=== PATIENT | male | born 1950 | race Caucasian/White ===

== ENCOUNTER 2023-07-23 22:12 | Inpatient (IN) | payer OTHER ==
[~2023-07-23] VITALS: Ht 167.6 cm; Wt 80.0 kg
[~2023-07-23 22:12] MED LIST: BACTRIM DS 8001 TAB PO; CIPRO 250MG TA250 MG PO; PERCOCET 325 MG1 TA2 PO
[2023-07-23 23:20] LABS: ALBUMIN 3.5 gm/dL (3.4-4.8); BILIRUBIN,TOTAL 0.5 mg/dL (0.2-1.2); CALCIUM 9.5 mg/dL (8.4-10.2); CREATININE, serum 1.17 mg/dL (0.72-1.25); POTASSIUM 4.6 mmol/L (3.5-4.5); TOTAL PROTEIN 7.5 gm/dL (6.2-8.1)
[2023-07-23 23:25] LABS: BASO # 0.1 K/mm3 (0.0-0.2); BASO % 0.8 % (0.0-2.0); EOS # 0.1 K/mm3 (0.0-0.7); EOS % 1.2 % (0.0-4.0); GRAN # 3.9 K/mm3 (1.4-6.5); GRAN % 60.6 % (42.2-75.2); HEMATOCRIT 44.3 % (42.0-52.0); HEMOGLOBIN 14.9 g/dl (13.5-18.0); LYMPH # 1.8 K/mm3 (1.2-3.4); LYMPH % 27.4 % (20.0-51.0); MEAN CELL VOLUME 87 fl (80.0-100.0); MEAN CORPUSCULAR HEMOGLOBIN 29 pg (27-31); MEAN CORPUSCULAR HGB CONC 34 g/dl (33.0-37.0); MEAN PLATELET VOLUME 13.3 fl (7.4-10.4); MONO # 0.6 K/mm3 (0.1-0.6); MONO % 8.8 % (1.7-9.3); PLATELET COUNT 94 K/mm3 (130-400); RED BLOOD COUNT 5.08 M/mm3 (4.20-5.60); REDCELL DISTRIBUTION WIDTH-CV 14.6 % (11.5-14.5)
[2023-07-23 23:26] LABS: TROPONIN-I 0.012 ng/mL (0.00-0.033)
[2023-07-24] VITALS (863 sets, daily range): BP systolic 113–1123; BP diastolic 66–90; PULSE 67–98; TEMP 97.8–98.2; O2SAT 88–100
[2023-07-24] MEDS ORDERED: TOPROL XL 25MG25 MG PO (02:24)
[2023-07-24] MEDS ORDERED: GLUCOPHAGE1000 MG PO (02:24)
[2023-07-24] MEDS ORDERED: JARDIANCE25 PO (02:24)
[2023-07-24] MEDS ORDERED: HCTZ 25MG TAB25 MG PO (02:24)
[2023-07-24] MEDS ORDERED: HYTRIN 5MG C5 MG/CAP PO (02:25)
[2023-07-24] MEDS ORDERED: NEURONTIN300 MG/CAP PO (02:25)
[2023-07-24] MEDS ORDERED: LANTUS SOLOS100 U/ML SQ (02:25)
[2023-07-24] MEDS ORDERED: OZEMPIC1 MG/0.71 SQ (02:26)
[2023-07-24] MEDS ORDERED: ASPIRIN E.C. 8181 MG PO (02:26)
[2023-07-24] MEDS ORDERED: SINGULAIR 110 MG/TAB PO (02:26)
[2023-07-24] MEDS ORDERED: ZOCOR 80MG80 MG PO (02:26)
[2023-07-24 03:17] LABS: INR 1.1 (0.8-3.0); PROTHROMBIN TIME 11.6 SECONDS (9.7-12.8)
--- NOTE | 2023-07-24 03:35 | NUR ---
REPORT RECEIVED FROM KHAI DIGGS RN. PT WHEELED TO ICU ROOM 2 VIA CART AND 1 STAFF. PT ABLE TO STAND AND TRANSFER WITH SBA AND RATES PAIN TO L SIE OF CHEST AT 4/10 AT THIS TIME. CARE PLAN REVIEWED, PATIENT ORIENTED TO ROOM, CALL LIGHT, PHONE, ADMISSION PROCESS AND ALL QUESTIONS ANSWERED. VSS AT THIS TIME. BED IN LOW POSITION AND CALL LIGHT WITHIN REACH.
--- NOTE | 2023-07-24 04:56 | NUR ---
PT REPORTS HE NEEDS AN EYE DROP FOR HIS LEFT EYE DUE TO CORNEAL TRANSPLANT X 4. UNSURE OF TYPE. CALLED BRITTNEE CARPIO AND NOTIFIED HER OF CONCERN. DUE TO UNCERTAINTY OF MEDICATION, WILL BRING IN MEDICATION TODAY AND IT CAN BE ADMINISTERED WHEN MEDICATION IS KNOWN.
[2023-07-24 05:15] LABS: BASO % 0.3 % (0.0-2.0); EOS # 0.1 K/mm3 (0.0-0.7); EOS % 1.8 % (0.0-4.0); GRAN # 3.3 K/mm3 (1.4-6.5); GRAN % 54.8 % (42.2-75.2); HEMATOCRIT 39.3 % (42.0-52.0); HEMOGLOBIN 13.2 g/dl (13.5-18.0); LYMPH % 33.8 % (20.0-51.0); MEAN CELL VOLUME 88 fl (80.0-100.0); MEAN CORPUSCULAR HEMOGLOBIN 30 pg (27-31); MEAN CORPUSCULAR HGB CONC 34 g/dl (33.0-37.0); MEAN PLATELET VOLUME 10.9 fl (7.4-10.4); MONO # 0.5 K/mm3 (0.1-0.6); MONO % 8.5 % (1.7-9.3); PLATELET COUNT 119 K/mm3 (130-400); RED BLOOD COUNT 4.48 M/mm3 (4.20-5.60); REDCELL DISTRIBUTION WIDTH-CV 14.6 % (11.5-14.5)
[2023-07-24 05:30] LABS: ALBUMIN 3.2 gm/dL (3.4-4.8); BILIRUBIN,TOTAL 0.5 mg/dL (0.2-1.2); CALCIUM 8.8 mg/dL (8.4-10.2); CHOLESTEROL RISK RATIO 2.3; CREATININE, serum 0.81 mg/dL (0.72-1.25); POTASSIUM 3.7 mmol/L (3.5-4.5); TOTAL PROTEIN 6.5 gm/dL (6.2-8.1)
[2023-07-24 05:40] LABS: TROPONIN-I 0.464 ng/mL (0.00-0.033)
--- NOTE | 2023-07-24 05:45 | NUR ---
POTASSIUM LEVEL OF 3.7 REPORTED TO BRITTNEE CARPIO. ORDERS TO INITIATE K REPLACEMENT PROTOCOL RECEIVED. VORB
--- NOTE | 2023-07-24 07:00 | NUR ---
Report received from ANA Coy. Reviewed labs. Reviewed gtts infusing including Nitro gtt. Reviewed POC. Pt is resting in bed watching TV. NPO for possible procedure today. Call light within reach.
[2023-07-24] MEDS ORDERED: BENADRYL50 MG PO (08:49)
[2023-07-24] MEDS ORDERED: FLONASEALLERGY NS (08:49)
[2023-07-24] MEDS ORDERED: RT ADVAIR 528 DISKUS IH (08:49)
[2023-07-24] MEDS ORDERED: PREDFORTE5ML OS (08:50)
[2023-07-24] MEDS ORDERED: PREDFORTE5ML OD (08:50)
--- NOTE | 2023-07-24 10:13 | NUR ---
Pt left floor for heart cath.
--- NOTE | 2023-07-24 10:41 | NUR ---
Refer to merge hemodynamic report for procedural sedation/notes
--- NOTE | 2023-07-24 11:15 | NUR ---
Pt returned to room 2. Pt needs to transfer to [facility], federico superviosr aware and Dr. Esquivel aware. Report received from ANA Botello. Site to right groin is soft and non-tender. Distal pulses palpable. Vital signs are stable. Pt is drowsy but easily arousable. C/o slight headache. Nitro continues to infuse. Call light wihtin reach. Educated about flat time and need to keep leg straight. Verbalized understanding.
--- NOTE | 2023-07-24 11:35 | NUR ---
RE: NSTEMI/ Cardiac Rehab referral. Patient being transported to , will follow up with Cardiac rehab staff for referral.
--- NOTE | 2023-07-24 12:38 | NUR ---
Paperwork faxed to Audrey at [facility].
--- NOTE | 2023-07-24 15:08 | NUR ---
cannery worker was notified patient will be transferred to [facility].
--- NOTE | 2023-07-24 15:34 | NUR ---
Audrey from the [facility] Transfer center called and said the patient's Primary Insurance [employer] is not in network for them. We would need to get prior authorization from the VA before would accept the transfer of the patient.
--- NOTE | 2023-07-24 15:40 | NUR ---
This RN spoke with Kitty, case mgmt and then to Esther, case mgmt regarding this, they both said that we do not get prior auth, that [facility] needs to get auth once the patient gets there.
--- NOTE | 2023-07-24 15:45 | NUR ---
This RN called Audrey again from the transfer center, just to clarify, who needed to get the transfer auth, and she stated we do, that she even moved it up the chain to her big bosses and they said no to the transfer without a prior auth from the VA.
--- NOTE | 2023-07-24 16:15 | NUR ---
This RN updated Dr. Toan Esquivel that was not able to accept the patient in transfer, due to insurance issues.
--- NOTE | 2023-07-24 18:28 | NUR ---
Pt resting in bed. Site to right groin remains soft and non-tender. Pt off bedrest, stands up at side of bed to void. Pt calls prior to getting up. Pt denies any chest pain. C/o headache, titrating nitro as tolerated. Call light within reach.
--- NOTE | 2023-07-24 19:15 | NUR ---
Received report from ANA Bo. Patient resting quietly in bed. Right groin cath access site is covered with gauze and tegaderm dressing. Site is clean, dry, intact, soft to palpation, and without hematoma formation. All pulses palpable.
--- NOTE | 2023-07-24 20:00 | NUR ---
Patient resting quietly in bed. Vitals within normal limits. Patient continues to receive nitro drip, see IV drip titrations. Patient denies presence of chest pain at this time but reports a mild headache. Nitro titrated down according to orders. Patient assisted with use of urinal. Snack provided with HS levemir. No further needs noted.
[2023-07-25] VITALS (1005 sets, daily range): BP systolic 104–166; BP diastolic 68–93; PULSE 84–113; TEMP 97.9–98.5; O2SAT 87–100
[2023-07-25 05:48] LABS: BASO % 0.3 % (0.0-2.0); EOS % 0.4 % (0.0-4.0); GRAN # 5.3 K/mm3 (1.4-6.5); GRAN % 74.1 % (42.2-75.2); HEMATOCRIT 39.1 % (42.0-52.0); HEMOGLOBIN 12.9 g/dl (13.5-18.0); LYMPH # 1.1 K/mm3 (1.2-3.4); LYMPH % 14.9 % (20.0-51.0); MEAN CELL VOLUME 87 fl (80.0-100.0); MEAN CORPUSCULAR HEMOGLOBIN 29 pg (27-31); MEAN CORPUSCULAR HGB CONC 33 g/dl (33.0-37.0); MEAN PLATELET VOLUME 10.9 fl (7.4-10.4); MONO # 0.7 K/mm3 (0.1-0.6); MONO % 9.7 % (1.7-9.3); PLATELET COUNT 112 K/mm3 (130-400); RED BLOOD COUNT 4.48 M/mm3 (4.20-5.60); REDCELL DISTRIBUTION WIDTH-CV 14.6 % (11.5-14.5)
[2023-07-25 06:02] LABS: CALCIUM 8.4 mg/dL (8.4-10.2); CREATININE, serum 0.72 mg/dL (0.72-1.25); POTASSIUM 3.6 mmol/L (3.5-4.5)
--- NOTE | 2023-07-25 07:00 | NUR ---
REPORT RECEIVED FROM ANA YANG. PT SITTING IN BEDSIDE CHAIR, VSS. NITRO INFUSING AT 15 MCG/MIN TO R HAND IV. PT DENIES ANY CHEST PAIN. CALL LIGHT IN REACH.
--- NOTE | 2023-07-25 10:38 | NUR ---
Initial visit; Patient preparing to go to [facility] for a triple bi-passe and is more concerned about his than he is himself. His is unable to get from one place to another and cannot drive. His daughter is setting up a group of friends who will help her so patient can thrive following his surgery. Patient thanked Toucher Up for prayer and god's blessings.
--- NOTE | 2023-07-25 13:59 | NUR ---
DOROTHY assisted with completing an RFS form for patient to go to [facility] for CABG surgery. DOROTHY faxed and emailed the RFS form to the [facility]. DOROTHY was notified they received the form. DOROTHY attempted to contact the midline supervisors to draw attention to the request but all calls went to voicemail. DOROTHY updated power house control room operator.
--- NOTE | 2023-07-25 17:55 | NUR ---
Call placed to [facility] after Dr. Olivares called the Emergent Authorizatoin Line for VA @ . The number they provided was [phone]. Call placed to transfer line. This steffen house supervisor did nto get to talk with Triage Nurse. Per the Transfer Line it is in the notes from yesterday that they explained they could not accept patient due to that he was out of network. He would need to go to a "[facility]" Call placed to [facility] transfer line to see if they would accept insurance.
--- NOTE | 2023-07-25 20:00 | NUR ---
PM ASSESSMENT COMPLETE. PT DENIES CHEST PAIN AT THIS TIME. DOES REPORT TENDERNESS TO R WRIST PIV. AREA WITH REDNESS. NEW 20 G PIV STARTED TO L WRIST X 1 STICK, NITRO AND NS MOVED TO NEW SITE. R WRIST PIV REMOVED, GAUZE DRESSING AND PAPER TAPE APPLIED. VSS, PT HAS BEEN COMMUNICATING WITH FAMILY VIA PERSONAL CELL PHONE. AWARE OF POTENTIAL OF HOSPITAL TRANSFER IN AM. PT STATES NO QUESTIONS OR CONCERNS AT THIS TIME.
[2023-07-26] VITALS (873 sets, daily range): BP systolic 106–129; BP diastolic 65–94; PULSE 78–101; TEMP 97.9–98.5; O2SAT 85–100
[2023-07-26 05:46] LABS: HEMATOCRIT 38.6 % (42.0-52.0); HEMOGLOBIN 13.2 g/dl (13.5-18.0); MEAN CELL VOLUME 86 fl (80.0-100.0); MEAN CORPUSCULAR HEMOGLOBIN 29 pg (27-31); MEAN CORPUSCULAR HGB CONC 34 g/dl (33.0-37.0); MEAN PLATELET VOLUME 11.3 fl (7.4-10.4); PLATELET COUNT 110 K/mm3 (130-400); REDCELL DISTRIBUTION WIDTH-CV 14.8 % (11.5-14.5)
--- NOTE | 2023-07-26 05:50 | NUR ---
PT AWOKEN FOR MORNING EKG. REPORTS HEADACHE, DENIES CHEST PAIN. TYLENOL GIVEN AND NITRO GTT DECREASED ONE TITRATION TO 10 MCG/MIN.
[2023-07-26 05:59] LABS: CALCIUM 8.9 mg/dL (8.4-10.2); CREATININE, serum 0.77 mg/dL (0.72-1.25); MAGNESIUM 1.8 mg/dL (1.6-2.6); POTASSIUM 3.6 mmol/L (3.5-4.5)
--- NOTE | 2023-07-26 07:00 | NUR ---
Report received from ANA Gurrola. Pt has uneventful night but was unable to get much sleep. Reports did not have any chest pain overnight. Nitro gtt continues to run at 10 mcg/min. Pt lies supine in bed and appears to be sleeping. No s/s discomfort. Call light in reach.
--- NOTE | 2023-07-26 11:24 | NUR ---
Spoke with Dave, Triage Coordinator at [facility]. Explained to Coordinator that the patients primary insurance is with the VA and we recievied an Emergent Referance Number last evening. Provided reference number; Updated Face Sheet and coordinator spoke with the nurse. Will take this back to his financial deparatment and get back to us soon.
--- NOTE | 2023-07-26 12:09 | NUR ---
Call recieved from blanca Acosta that the billing department at [facility] wanted a written verification number. Call to Emergent Authorization; they stated that when the VA arrives at [facility] they would just need to call within the first 72 hours for authorization and they would be provided with that number. After a 15 minute hold and providing the patient demographics and the hospital information; it was communicated to this bunk house worker that is out of network
--- NOTE | 2023-07-26 12:58 | NUR ---
D: Initial visit: Stone Dresser stopped by room on rounds. Pt was resting and content sitting in his chair A: Pt was concerned about finding a place for him to go. His is in [place] and unable to drive. He wants to go to a place that has family close. P: Stone Dresser discussed his concernes and offered comfort. Stone Dresser informed pt that if he needed anything to let his nurse know. Stone Dresser will follow up as needed.
--- NOTE | 2023-07-26 12:58 | NUR ---
Call placed to [facility] in [place]. Provided patient's demographics. Faxed Face Sheet; Cath Report; ID Card; VA Verificaton Form. Provided Dr. Olivares # as well as this rogers supervisors number. Had Grassland Conservationist cloud cath images and ECHO
--- NOTE | 2023-07-26 14:00 | NUR ---
Recieved a call from Dave, Triage Coordinator at [facility]. Stated that he recieved a call from his billing department and they have accepted patient financial under Medicare. Questioned Dave that this was correct as this facility had been told yesterday that Medicare/Humana was not in network. Dave assured this Bowling Pin Setters Installer that he also was aware of that and his billing dept assured that he had been accepted. Call placed to ANA Stilesbunch breaker machine operator as there is some concern regarding the info given to this Bowling Pin Setters Installer regarding patient's payment source.
--- NOTE | 2023-07-26 15:00 | NUR ---
I called Transfer Team with with Guillermo Safety Representative and spoke with Dave concerning case. It is now being said that they will accept under [employer] for this pt. I reminded Dave that on 07/24 they had stated that the pt was out of network for his [employer] and stated he could only come under his VA Choice. A VA Choice auth was obtained and on 07/25 it was attempted by Guillermo to secure a transfer. In this process we were told that now their Billing dept was declining VA for the transfer. [place] obtained by [place] was [place] [id number]. Today the Billing Dept stated that they would accept pt under [employer]. I inquired of Dave why now the pt would be covered by [employer] when on 07/24 it was declined. He did not know but he did state that in fact they had a bed and would accept the pt under [employer]. Pt to be transferred later today to .
--- NOTE | 2023-07-26 15:22 | NUR ---
tar pot worker was notified [facility] expressed they were out of network and would not be able to accept this patient. DOROTHY contacted the [place] midlevel insurance claims supervisor, Vianey Wen, whom expressed this was not the case and they should be able to accept the patient with the ID number that Dr. Olivares received yesterday, ID [id number]. Vianey expressed she would be willing to speak with the [facility] if needed. DOROTHY notified house painter helper, Guillermo about the conversation with Vianey. Guillermo expressed she was in contact with Dave at [facility] and she was sending the information he requested. DOROTHY was notified by ANA [facility] health physician, whom expressed patient was worried about when he transferred to another hospital that his whom has dementia would be home alone. DOROTHY was notified patient has been accepted by [facility] and the house painter helper was working on transferring him via ambulance. SW met with patient and provided this update. SW discussed patient's concerns about his being home alone and asked if they would like home health services. Patient expressed he would like his to have home health services once he returns from the hospital and he would also like to have home health services. DOROTHY provided the Medicare.gov list of home health agencies in the patient's area for when he discharges from [facility]. Patient reports his PCP and his 's PCP is Dr. Kia Rudolph. Patient lives in [place] and has not had concerns with affording his medications. Patient reports he is not concerned at this time about his because he has family members that are going to transfer her to [facility] when he transfers there. DORTOHY contacted Mei from [facility] for Dr. Rudolph's office. DOROTHY explained patient would like himself and his to have home health services when he returns from the hospital. Deidre expressed [facility] should establish the patient with home health services but the SW could provide the patient with their contact information to get it established if they do not prior to discharge from . DOROTHY provided the [facility] number to the patient and his and notified them to contact them if home health was not established upon patient's discharge from [facility]. DOROTHY left a voicemail with [place], Vianey Wen, to give an update. Discharge Plan: [facility]
--- NOTE | 2023-07-26 16:00 | NUR ---
Pt taken via EMS to [facility] for anticipated CABG procedure at this time. Pt has clothes, cellphone, kiln charger, shoes, and wallet in his possession upon transfer. VS within normal limits. Nitro gtt continued upon transfer at 15 mcg/min. EMS given report on patient. Patient and family aware of plan of care. All questions answered appropriately.
--- NOTE | 2023-07-26 16:25 | NUR ---
PHONE REPORT GIVEN TO ANA PIMENTEL AT [facility]. PT WILL BE GOING TO ROOM HC 421.
== END 2023-07-26 16:00 | DRG 282 ==
LOC: COL.ER 22:12 → EDBD 22:13 → ICU 07-24 02:43
PROVIDERS: Internal Medicine; Nurse Practitioner Family; Nurse Practitioner Primary Care; ADMIT Internal Medicine
PROC: 4A023N7 Measurement of Cardiac Sampling and Pressure, Left Heart, Percutaneous Approach (ICD-10-PCS; principal; 2023-07-24)
DX: I21.4 Non-ST elevation (NSTEMI) myocardial infarction (principal); D69.6 Thrombocytopenia, unspecified; I10 Essential (primary) hypertension; E78.5 Hyperlipidemia, unspecified; J44.9 Chronic obstructive pulmonary disease, unspecified; E11.65 Type 2 diabetes mellitus with hyperglycemia; Z79.4 Long term (current) use of insulin; K40.90 Unilateral inguinal hernia, without obstruction or gangrene, not specified as recurrent
CPT/HCPCS: G0378; J1644; J1815; J2250; J2305; J3010; J3480; J7030; Q9967

== ENCOUNTER 2023-08-24 18:09 | Observation (INO) | payer OTHER ==
[~2023-08-24] VITALS: Ht 167.6 cm; Wt 77.6 kg
[~2023-08-24 18:09] MED LIST changes: +ASPIRIN E.C. 8181 MG PO; +BENADRYL50 MG PO; +FLONASEALLERGY NS; +GLUCOPHAGE1000 MG PO; +HCTZ 25MG TAB25 MG PO; +HYTRIN 5MG C5 MG/CAP PO; +JARDIANCE25 PO; +LANTUS SOLOS100 U/ML SQ; +NEURONTIN300 MG/CAP PO; +OZEMPIC1 MG/0.71 SQ; +PREDFORTE5ML OD; +PREDFORTE5ML OS; +RT ADVAIR 528 DISKUS IH; +SINGULAIR 110 MG/TAB PO; +TOPROL XL 25MG25 MG PO; +ZOCOR 80MG80 MG PO
[2023-08-24] MEDS ORDERED: NS 500 ML IV ONE (18:30)
[2023-08-24] MEDS ORDERED: Acetaminophen 500 MG TAB PO ONE (18:30)
[2023-08-24 18:46] LABS: BASO % 0.5 % (0.0-2.0); EOS # 0.2 K/mm3 (0.0-0.7); EOS % 2.8 % (0.0-4.0); GRAN % 65.1 % (42.2-75.2); HEMOGLOBIN 11.5 g/dl (13.5-18.0); LYMPH # 1.3 K/mm3 (1.2-3.4); LYMPH % 20.9 % (20.0-51.0); MEAN CELL VOLUME 85 fl (80.0-100.0); MEAN CORPUSCULAR HEMOGLOBIN 27 pg (27-31); MEAN CORPUSCULAR HGB CONC 32 g/dl (33.0-37.0); MEAN PLATELET VOLUME 9.9 fl (7.4-10.4); MONO # 0.6 K/mm3 (0.1-0.6); MONO % 10.1 % (1.7-9.3); PLATELET COUNT 215 K/mm3 (130-400); RED BLOOD COUNT 4.25 M/mm3 (4.20-5.60); REDCELL DISTRIBUTION WIDTH-CV 15.1 % (11.5-14.5)
[2023-08-24 18:55] LABS: HEMATOCRIT 35.9 % (42.0-52.0)
[2023-08-24 19:02] LABS: ALBUMIN 3.2 gm/dL (3.4-4.8); BILIRUBIN,TOTAL 0.6 mg/dL (0.2-1.2); CALCIUM 9.1 mg/dL (8.4-10.2); CREATININE, serum 1.1 mg/dL (0.72-1.25); POTASSIUM 3.6 mmol/L (3.5-4.5)
[2023-08-24 19:09] LABS: TROPONIN-I 0.085 ng/mL (0.00-0.033)
[2023-08-24] MEDS ORDERED: Ibuprofen 400 MG TAB PO ONE (20:30)
[2023-08-24] MEDS ORDERED: K-DUR20 MEQ PO (20:43)
[2023-08-24] MEDS ORDERED: LIPITOR 80MG80 MG PO (20:44)
[2023-08-24] MEDS ORDERED: LOPRESSOR 225 MG/TAB PO (20:44)
[2023-08-24] MEDS ORDERED: PLAVIX 75MG TAB75 MG PO (20:45)
[2023-08-24 21:00] VITALS: BP_SYST 120
[2023-08-24] MEDS ORDERED: Ondansetron 4 MG/2 ML VIAL IV PRN (22:15)
[2023-08-24] MEDS ORDERED: Albuterol/Ipratropium 3 MG-0.5 MG/3 ML Neb Soln IH PRN (22:15)
[2023-08-24] MEDS ORDERED: NS 1,000 ML IV SCH (22:15)
[2023-08-24] MEDS ORDERED: oxyCODONE 5 MG TAB PO PRN (22:15)
[2023-08-24] MEDS ORDERED: Acetaminophen 325 MG TAB PO PRN (22:15)
[2023-08-24 22:21] VITALS: BP 127/83; PULSE 78; TEMP 98.3
--- NOTE | 2023-08-24 22:24 | NUR ---
PATIENT ADMITTED TO ROOM 353. VS-BP 109/75, 96O2 RA, 86 PULSE, 98.3 TEMP. AXO X4. C/O OF MILD CHEST PAIN 2/10 AND REQUIRED NO PAIN MED. HE DENIES SOA AND LUNG SOUNDS ARE CLEAR. TELE IS NS.ORIENTED TO ROOM, CALL LIGHT WITHIN REACH
[2023-08-24] MEDS ORDERED: Dextrose (Glucose) 15 GM (4 x 3.75 GM) Chewable TABLET PACK PO PRN (22:30)
[2023-08-24] MEDS ORDERED: Glucagon 1 MG VIAL IM PRN (22:30)
[2023-08-24] MEDS ORDERED: Dextrose 50% Water 25 GM/50 ML SYRINGE IV PRN (22:30)
[2023-08-24 23:34] VITALS: BP 90/64; PULSE 88; TEMP 97.9
[2023-08-25] VITALS (12 sets, daily range): BP systolic 105–137; BP diastolic 68–82; PULSE 77–87; TEMP 97.5–98.5
[2023-08-25 05:58] LABS: BASO % 0.6 % (0.0-2.0); EOS # 0.2 K/mm3 (0.0-0.7); EOS % 4.1 % (0.0-4.0); GRAN # 2.6 K/mm3 (1.4-6.5); GRAN % 51.4 % (42.2-75.2); HEMOGLOBIN 11.2 g/dl (13.5-18.0); LYMPH # 1.7 K/mm3 (1.2-3.4); LYMPH % 32.5 % (20.0-51.0); MEAN CELL VOLUME 85 fl (80.0-100.0); MEAN CORPUSCULAR HEMOGLOBIN 27 pg (27-31); MEAN CORPUSCULAR HGB CONC 32 g/dl (33.0-37.0); MEAN PLATELET VOLUME 9.8 fl (7.4-10.4); MONO # 0.5 K/mm3 (0.1-0.6); MONO % 10.6 % (1.7-9.3); PLATELET COUNT 192 K/mm3 (130-400); RED BLOOD COUNT 4.09 M/mm3 (4.20-5.60); REDCELL DISTRIBUTION WIDTH-CV 15.1 % (11.5-14.5)
[2023-08-25 06:00] LABS: HEMATOCRIT 34.8 % (42.0-52.0)
[2023-08-25 06:16] LABS: BILIRUBIN,TOTAL 0.6 mg/dL (0.2-1.2); CALCIUM 8.9 mg/dL (8.4-10.2); CREATININE, serum 0.84 mg/dL (0.72-1.25); MAGNESIUM 1.7 mg/dL (1.6-2.6); POTASSIUM 3.5 mmol/L (3.5-4.5); TOTAL PROTEIN 6.8 gm/dL (6.2-8.1)
[2023-08-25 06:37] LABS: THYROID STIMULATING HORMONE 2.139 uIU/mL (0.350-4.940)
[2023-08-25] MEDS ORDERED: Formoterol 20 MCG,Budesonide 0.5 MG IH SCH (07:00)
[2023-08-25] MEDS ORDERED: Insulin Aspart (NovoLOG) SQ SCH (08:00)
--- NOTE | 2023-08-25 08:05 | NUR ---
LOLA WAS PLEASANT AND TALKATIVE THROUGHOUT THE NIGHT. HE CONTINUES TO STATE HE HAS MILD CHEST PAIN-2/10-BUT DOES NOT WANT PAIN MEDS. NO EMERGGENT STATUS CHANGES. LAST TROPONIN 0.029. VS REMAIN STABLE-NO HYPOTENSION OR ARRYTHMIAS. CALL LIGHT WITHIN REACH
--- NOTE | 2023-08-25 08:30 | NUR ---
PT RESTING IN BED UPON ENTERING. ASSESSMETN DONE, MEDS GIVEN AND PT REFUSED PEPCID STATING "I DONT NEED THAT". PT DENIES PAIN OR SHORTNESS OF BREATH AT THIS TIME. PT UPDATED THAT CARDIOLOGY IS GOING TO SEE HIM AND THAT HE IS STILL NPO AT THIS TIME. PT VERBALIZES UNDERSTANDING. NS RUNNING IN RIGHT FOREARM IV AT 100MLS/HR PER ORDER. LUNGS CLEAR AND SCATTERED BRUISING NOTED TO BILATERAL UPPER AND LOWER EXTREMITIES. PT DENIES NEEDS AT THIS TIME. BED IN LOWEST POSITION, CALL LIGHT IN REACH
[2023-08-25] MEDS ORDERED: Clopidogrel 75 MG TAB PO SCH (09:00)
[2023-08-25] MEDS ORDERED: Famotidine 20 MG TAB PO SCH (09:00)
[2023-08-25] MEDS ORDERED: Metoprolol Tartrate 25 MG TAB PO SCH (09:00)
[2023-08-25] MEDS ORDERED: Magnesium Sulfate 4% 50 ML IV ONE (09:15)
[2023-08-25] MEDS ORDERED: Potassium Bicarbonate/Citrate 20 MEQ Effervescent TAB PO SCH (09:15)
[2023-08-25] MEDS ORDERED: Fluticasone Nasal 50 MCG/Spray 16 GM BOTTLE NS PRN (09:15)
[2023-08-25] MEDS ORDERED: *Potassium Replacement Protocol MC SCH (09:15)
--- NOTE | 2023-08-25 10:35 | NUR ---
IV FLUIDS DISCONTINUED PER ORDER
--- NOTE | 2023-08-25 11:13 | NUR ---
PT CURENTLY NPO. THIS NURSE ASKED DR ABERNATHY IF POTASSIUM REPLACEMENT CAN BE CHAGNED TO PILL VERSUS FLUIDS, PT REFUSING IV REPLACEMENT. HOSPITALIST NOTIFIED THIS NURSE THAT IT IS OKAY TO CHANGE
--- NOTE | 2023-08-25 11:16 | NUR ---
PHARMACY CALLED AND POTASSIUM REPLACEMENT CHANGED TO PILL
--- NOTE | 2023-08-25 13:58 | NUR ---
Data: Patient accepted Research Attorney visit when offered during Research Attorney rounds. Patient spoke at length about his illness; the effect it has had on his family, especially his ; the weather; his desire to move to a warmer climate and be closer to 's family; and his time as a Commercial Lines Assistant. Assessment: Patient is lonely and was grateful for someone to talk to about the things he has been thinking of during his hospital stay. Plan of Care: Research Attorney provided supportive listening; a bible; and prayer. Educated Patient on how to request a Research Attorney should he need more support.
--- NOTE | 2023-08-25 16:05 | NUR ---
REPORT GIVEN TO ANA LOW
--- NOTE | 2023-08-25 16:30 | NUR ---
Production Checker met with patient to discuss discharge planning. Patient lives in [place] with his , Esther (ph#[phone]) and goes to the [facility] for primary care and medications. Patient sees Dr. María Witt. Patient uses a cane for ambulation and not other DME. Patient is independent with ADLS and plans to return home at time of discharge. Patient reported his daughter, Ange as DPOA-HC. Discharge Plan: Home
[2023-08-25] MEDS ORDERED: Gabapentin 300 MG CAP PO SCH (21:00)
[2023-08-25] MEDS ORDERED: Montelukast 10 MG TAB PO SCH (21:00)
--- NOTE | 2023-08-25 21:00 | NUR ---
Patient resting in bed. Denies any pain at this time. Requested snack, snack provided. Assessment complete. IV in right forearm flushes easily with no complications. Call light and personal items in reach. Bed in low position.
[2023-08-26] VITALS (7 sets, daily range): BP systolic 114–124; BP diastolic 71–81; PULSE 77–79; TEMP 98–98.3
--- NOTE | 2023-08-26 06:30 | NUR ---
Patient resting in bed with eyes closed. Respirations even and unblabored. No signs of pain. No changes over night. Call light and personal items in reach. Bed in low postion and bed alarm on.
[2023-08-26 07:10] LABS: BASO % 0.7 % (0.0-2.0); EOS # 0.2 K/mm3 (0.0-0.7); EOS % 3.5 % (0.0-4.0); GRAN # 3.6 K/mm3 (1.4-6.5); HEMOGLOBIN 11.7 g/dl (13.5-18.0); LYMPH # 1.4 K/mm3 (1.2-3.4); LYMPH % 23.2 % (20.0-51.0); MEAN CELL VOLUME 84 fl (80.0-100.0); MEAN CORPUSCULAR HEMOGLOBIN 27 pg (27-31); MEAN CORPUSCULAR HGB CONC 32 g/dl (33.0-37.0); MEAN PLATELET VOLUME 10.1 fl (7.4-10.4); MONO # 0.7 K/mm3 (0.1-0.6); MONO % 10.9 % (1.7-9.3); PLATELET COUNT 192 K/mm3 (130-400); RED BLOOD COUNT 4.39 M/mm3 (4.20-5.60)
[2023-08-26 07:31] LABS: CALCIUM 8.9 mg/dL (8.4-10.2); CREATININE, serum 0.78 mg/dL (0.72-1.25); MAGNESIUM 1.7 mg/dL (1.6-2.6); POTASSIUM 3.9 mmol/L (3.5-4.5)
[2023-08-26] MEDS ORDERED: Potassium Bicarbonate/Citrate 20 MEQ Effervescent TAB PO ONE (08:00)
--- NOTE | 2023-08-26 08:20 | NUR ---
PT LAYING IN BED UPON ENTERING. ASSESSMENT DONE, MEDS GIVEN PER ORDER. PT DENIES PAIN AT THIS TIME. PT REFUSED PEPCID AT THIS TIME. POTASSIUM REPLACED X1 DOSE. INT TO RIGHT FOREARM LEAKING DURING FLUSH, INT REPOSITIONED AND DRESSING CHANGED. INT FLUSHES WITHOUT DIFFICULTY. PT DENIES NEEDS AT THIS TIME. BED IN LOWEST POSITION, CALL LIGHT IN REACH
[2023-08-26] MEDS ORDERED: Magnesium Sulfate 4% 50 ML IV ONE (08:45)
--- NOTE | 2023-08-26 15:26 | NUR ---
IV AND TELE DISCONTINUED. PT DRESSED IN PERSONAL CLOTHES AND GIVEN DISCHARGE INSTRUCTIONS. ALL QUESTIONS ANSWERED AND PT VERBALIZED UNDERSTANDING. PT ESCORTED TO PERSONAL VEHICLE VIA WHEELCHAIR BY VASQUEZ EUGENE.
== END 2023-08-26 15:34 | disposition home or self-care (01) ==
LOC: COL.ER 18:09 → MEDICAL 21:24
PROVIDERS: Emergency Medicine; Physician Assistant; ADMIT Hospitalist
DX: G89.18 Other acute postprocedural pain (principal); R07.89 Other chest pain; R79.89 Other specified abnormal findings of blood chemistry; I25.10 Atherosclerotic heart disease of native coronary artery without angina pectoris; E78.5 Hyperlipidemia, unspecified; I95.9 Hypotension, unspecified; I63.9 Cerebral infarction, unspecified; I10 Essential (primary) hypertension; E87.6 Hypokalemia; E83.42 Hypomagnesemia; E11.9 Type 2 diabetes mellitus without complications; J44.9 Chronic obstructive pulmonary disease, unspecified; I97.89 Other postprocedural complications and disorders of the circulatory system, not elsewhere classified; Z79.899 Other long term (current) drug therapy; Z79.84 Long term (current) use of oral hypoglycemic drugs; Z79.82 Long term (current) use of aspirin; Z79.02 Long term (current) use of antithrombotics/antiplatelets; Z87.891 Personal history of nicotine dependence; Z95.1 Presence of aortocoronary bypass graft; Z79.4 Long term (current) use of insulin
CPT/HCPCS: G0378; J1815; J3475; J7030; J7040

== ENCOUNTER → 2023-09-12 | Outpatient (RCR) | payer OTHER ==
[~2023-09-12] MED LIST changes: +K-DUR20 MEQ PO; +LIPITOR 80MG80 MG PO; +LOPRESSOR 225 MG/TAB PO; +PLAVIX 75MG TAB75 MG PO
== END | disposition home or self-care (01) ==
LOC: COL.CR
DX: Z48.812 Encounter for surgical aftercare following surgery on the circulatory system (principal); Z95.5 Presence of coronary angioplasty implant and graft

== ENCOUNTER 2023-10-26 10:13 | Day surgery (SDC) | payer OTHER, MEDICARE ==
[~2023-10-26] VITALS: Ht 167.6 cm; Wt 81.5 kg
[~2023-10-26 10:13] MED LIST changes: +LR 1,000 ML IV SCH
[2023-10-26 11:25] LABS: BASO # 0.1 K/mm3 (0.0-0.2); BASO % 0.7 % (0.0-2.0); EOS # 0.2 K/mm3 (0.0-0.7); EOS % 2.6 % (0.0-4.0); GRAN # 3.8 K/mm3 (1.4-6.5); GRAN % 52.8 % (42.2-75.2); HEMATOCRIT 39.1 % (42.0-52.0); HEMOGLOBIN 12.6 g/dl (13.5-18.0); LYMPH # 2.4 K/mm3 (1.2-3.4); LYMPH % 33.8 % (20.0-51.0); MEAN CELL VOLUME 81 fl (80.0-100.0); MEAN CORPUSCULAR HEMOGLOBIN 26 pg (27-31); MEAN CORPUSCULAR HGB CONC 32 g/dl (33.0-37.0); MEAN PLATELET VOLUME 11.1 fl (7.4-10.4); MONO # 0.7 K/mm3 (0.1-0.6); MONO % 9.7 % (1.7-9.3); PLATELET COUNT 166 K/mm3 (130-400); RED BLOOD COUNT 4.82 M/mm3 (4.20-5.60); REDCELL DISTRIBUTION WIDTH-CV 15.9 % (11.5-14.5)
[2023-10-26 11:45] VITALS: BP 133/87; PULSE 73; TEMP 98.1
--- NOTE | 2023-10-26 11:48 | NUR ---
1039 Patient ambulatory to bay 6 with a steady gait, breathing is even and unlabored. Patient is alert and oriented, accompanied by his . Consents reviewed with patient and signed by patient. IV established. Blood specimen obtained and sent to lab. EKG and chest x-ray obtained. LR infusing via gravity at KVO. Call light in reach. Warm blanket provided.
[2023-10-26] MEDS ORDERED: NS 10 ML IV ONE (11:49)
[2023-10-26] MEDS ORDERED: Lidocaine PF 2% (20 MG/ML) 5 ML VIAL ONE (11:49)
[2023-10-26 11:54] LABS: CALCIUM 8.5 mg/dL (8.4-10.2); CREATININE, serum 0.76 mg/dL (0.72-1.25); POTASSIUM 3.8 mmol/L (3.5-4.5)
[2023-10-26] MEDS ORDERED: Famotidine 20 MG TAB PO SCH (12:00)
[2023-10-26] MEDS ORDERED: Metoclopramide 10 MG TAB PO SCH (12:00)
[2023-10-26] MEDS ORDERED: D5 1/2 NS 1,000 ML IV SCH (12:00)
[2023-10-26] MEDS ORDERED: PERCOCET 325 MG1 TA2 PO (13:10)
[2023-10-26] MEDS ORDERED: dexAMETHasone 10 MG/ML VIAL ONE (13:11)
[2023-10-26] MEDS ORDERED: Ondansetron 4 MG/2 ML VIAL ONE (13:11)
[2023-10-26] MEDS ORDERED: fentaNYL 50 MCG/ML 2 ML VIAL ONE (13:17)
[2023-10-26] MEDS ORDERED: Topical Skin Adhesive 1 EACH (1 ML) TOP ONE (13:26)
[2023-10-26] MEDS ORDERED: BUPivacaine PF 0.5% w EPI (1:200,000) 10 ML VIAL SQ ONE (13:26)
[2023-10-26] MEDS ORDERED: Lidocaine PF 2% (20 MG/ML) 10 ML POLY AMP IM ONE (13:26)
[2023-10-26] MEDS ORDERED: Meperidine 50 MG/ML 1 ML VIAL IV PRN (13:45)
[2023-10-26] MEDS ORDERED: hydrALAZINE 20 MG/ML 1 ML VIAL IV PRN (13:45)
[2023-10-26] MEDS ORDERED: HYDROmorphone 2 MG/1 ML VIAL IV PRN (13:45)
[2023-10-26] MEDS ORDERED: fentaNYL 50 MCG/ML 2 ML VIAL IV PRN (13:45)
[2023-10-26] MEDS ORDERED: Ondansetron 4 MG/2 ML VIAL IV PRN ×2 (13:45→14:30)
[2023-10-26] MEDS ORDERED: oxyCODONE/Acetaminophen 5-325 MG TAB PO PRN (14:30)
[2023-10-26] MEDS ORDERED: Morphine 4 MG/ML VIAL IV PRN (14:30)
[2023-10-26] MEDS ORDERED: Ibuprofen 600 MG TAB PO PRN (14:30)
[2023-10-26 15:15] VITALS: BP 134/81; PULSE 71; TEMP 97.7
[2023-10-26 15:30] VITALS: BP 143/78; PULSE 71
[2023-10-26 15:45] VITALS: BP 136/80; PULSE 75
--- NOTE | 2023-10-26 16:29 | NUR ---
1515: PATIENT TO BAY 6 VIA COT FROM PACU. REPORT RECEIVED FROM ANA COOK. PATIENT ALERT AND ORIENTED. VSS. BREATHING EVEN AND UNLABORED. ABDOMINAL SURGICAL INCISION C/D/I AND CLOSED WITH SKIN GLUE. PATIENT TOLERATING ICE CHIPS NO C/O NAUSEA. STATED PAIN IS TOLERABLE AND DENIED THE NEED FOR PAIN MEDICATIONS. REQUESTING JELLO AT THIS TIME. NO FURTHER NEEDS NOTED. RESTING IN COT. CALL LIGHT IN REACH. AT BEDSIDE. 1530: ALERT AND ORIENTED. VSS. BREATHING EVEN AND UNLABORED. ABDOMINAL INCISION C/D/I. PATIENT TOLERATING JELLO AND ICE CHIPS. DENIES NAUSEA. CONTINUES TO STATE PAIN IS TOLERABLE AND DENIES NEED FOR PAIN MEDICATION. RESTING IN COT. CALL LIGHT IN REACH. AT BEDSIDE. 1545: ALERT AND ORIENTED. VSS. BREATHING EVEN AND UNLABORED. ABDOMINAL INCISION C/D/I. PATIENT TOLERATING JELLO AND ICE CHIPS. DENIES NAUSEA. CONTINUES TO STATE PAIN IS TOLERABLE. IV DC'D AT THIS TIME. TO ASSIST PATIENT WITH DRESSING. 1600: DISCHARGE EDUCATION COMPLETED AT THIS TIME. PATIENT STATED UNDERSTANDING OF HOME AND FOLLOW-UP INSTRUCTIONS. DISCHARGE PAPERWORK GIVEN TO PATIENT. 1605: PATIENT AMBULATED FROM COT TO WHEELCHAIR WITH STEADY GAIT AND USE OF CANE. PATIENT OFF UNIT AT THIS TIME. DISCHARGED TO HOME WITH AND DAUGHTER PER PERSONAL VEHICLE.
[2023-10-26 17:59] VITALS: BP 140/92; PULSE 73
== END 2023-10-26 16:05 | disposition home or self-care (01) ==
LOC: SDCO 10:13
PROVIDERS: Surgery
DX: K40.91 Unilateral inguinal hernia, without obstruction or gangrene, recurrent (principal); E11.65 Type 2 diabetes mellitus with hyperglycemia; Z79.4 Long term (current) use of insulin; Z79.85 Long-term (current) use of injectable non-insulin antidiabetic drugs; Z79.84 Long term (current) use of oral hypoglycemic drugs; Z86.73 Personal history of transient ischemic attack (TIA), and cerebral infarction without residual deficits; Z95.1 Presence of aortocoronary bypass graft; Z91.040 Latex allergy status; Z94.7 Corneal transplant status; Z87.891 Personal history of nicotine dependence
CPT/HCPCS: C1781; J0690; J1100; J2405; J2704; J3010; J7120

== ENCOUNTER 2023-12-17 10:11 | Emergency (ER) | payer OTHER ==
[~2023-12-17] VITALS: Ht 167.6 cm; Wt 77.3 kg
[~2023-12-17 10:11] MED LIST changes: +BENADRYL25 M2 PO; +CORDARONE200 MG/TAB PO; +ELIQUIS 5MG PO; -LR 1,000 ML IV SCH; +OZEMPIC0.25 MG/02 SQ
[2023-12-17 10:12] VITALS: TEMP 99.1
[2023-12-17 10:56] LABS: BASO % 0.4 % (0.0-2.0); EOS # 0.2 K/mm3 (0.0-0.7); EOS % 2.1 % (0.0-4.0); GRAN # 4.8 K/mm3 (1.4-6.5); GRAN % 61.3 % (42.2-75.2); HEMOGLOBIN 11.6 g/dl (13.5-18.0); LYMPH # 1.9 K/mm3 (1.2-3.4); LYMPH % 24.8 % (20.0-51.0); MEAN CELL VOLUME 82 fl (80.0-100.0); MEAN CORPUSCULAR HEMOGLOBIN 27 pg (27-31); MEAN CORPUSCULAR HGB CONC 33 g/dl (33.0-37.0); MEAN PLATELET VOLUME 10.6 fl (7.4-10.4); MONO # 0.9 K/mm3 (0.1-0.6); MONO % 10.9 % (1.7-9.3); PLATELET COUNT 152 K/mm3 (130-400); RED BLOOD COUNT 4.35 M/mm3 (4.20-5.60); REDCELL DISTRIBUTION WIDTH-CV 17.1 % (11.5-14.5)
[2023-12-17 11:03] LABS: HEMATOCRIT 35.7 % (42.0-52.0); INR 1.7 (0.8-3.0); PROTHROMBIN TIME 18.6 SECONDS (9.7-12.8)
[2023-12-17 11:06] LABS: PARTIAL THROMBOPLASTIN TIME 36.3 SECONDS (26.0-37.0)
[2023-12-17 11:17] LABS: ALANINE AMINOTRANSFERASE 18 U/L (0-55); ALBUMIN 3.1 g/dL (3.4-4.8); ALKALINE PHOSPHATASE 72 U/L (40-150); ANION GAP 12 mmol/L (7-16); AST,SGOT 16 U/L (5-34); BILIRUBIN,TOTAL 0.5 mg/dL (0.2-1.2); BLOOD UREA NITROGEN 13 mg/dL (8-26); CALCIUM 8.8 mg/dL (8.4-10.2); CHLORIDE 108 mEq/L (98-107); CREATININE, serum 0.82 mg/dL (0.72-1.25); GLUCOSE 147 mg/dL (70-99); MAGNESIUM 1.2 mg/dL (1.6-2.6); POTASSIUM 3.4 mEq/L (3.5-4.5); SODIUM 141 mEq/L (136-145); TOTAL PROTEIN 6.8 g/dl (6.2-8.1)
[2023-12-17 11:39] LABS: TROPONIN-I < 0.010 ng/mL (0.00-0.033)
[2023-12-17] MEDS ORDERED: Magnesium Sulfate 4% 50 ML IV ONE (11:45)
[2023-12-17 11:56] LABS: COLLECTION METHOD CLEAN CATCH
[2023-12-17 12:17] LABS: URINE APPEARANCE CLOUDY (CLEAR/HAZY); URINE BLOOD 3+ (NEGATIVE); URINE COLOR YELLOW (YELLOW); URINE GLUCOSE 1+ (NEGATIVE); URINE KETONE NEGATIVE (NEGATIVE); URINE NITRATE POSITIVE (NEGATIVE); URINE PROTEIN(semi-quant) 1+ (NEGATIVE); URINE UROBILINOGEN 0.2 E.U/dL (0.2-1.0)
[2023-12-17] MEDS ORDERED: cefTRIAXone 2 G in Water For Injection,Sterile 20 ML IV ONE (12:45)
[2023-12-17] MEDS ORDERED: CEPHALEXIN500 M1 PO (13:58)
[2023-12-17 14:21] VITALS: BP 130/79; PULSE 73
== END 2023-12-17 14:21 | disposition home or self-care (01) ==
LOC: COL.ER 10:11
PROVIDERS: Emergency Medicine
DX: N39.0 Urinary tract infection, site not specified (principal); E83.42 Hypomagnesemia; Z91.040 Latex allergy status; Z87.891 Personal history of nicotine dependence
CPT/HCPCS: J0696; J3475

== ENCOUNTER 2024-02-26 07:13 | Day surgery (SDC) | payer OTHER ==
[~2024-02-26] VITALS: Ht 167.6 cm; Wt 81.4 kg
[~2024-02-26 07:13] MED LIST changes: -BENADRYL25 M2 PO; +CEPHALEXIN500 M1 PO; -LOPRESSOR 225 MG/TAB PO; -OZEMPIC0.25 MG/02 SQ; +OZEMPIC2 MG/0.75 SQ; +TOPROL XL 50MG50 MG PO
[2024-02-26 08:12] VITALS: BP 144/84; PULSE 77; TEMP 97.5
[2024-02-26] MEDS ORDERED: PACERONE200 MG PO (08:19)
[2024-02-26] MEDS ORDERED: ELIQUIS 5MG PO (08:20)
[2024-02-26] MEDS ORDERED: PREDFORTE5ML OP (08:27)
[2024-02-26] MEDS ORDERED: CEPHALEXIN500 M1 PO (08:59)
--- NOTE | 2024-02-26 08:59 | NUR ---
Report from ANA Espinoza.Dressing observed clean,dry,and intact. at bedside.Patient provided breakfast bar and water.Will continue to monitor.
[2024-02-26 09:00] VITALS: BP 153/96; PULSE 77
--- NOTE | 2024-02-26 09:17 | NUR ---
Discharge instructions given to pt.Pt verbalizes understanding.Pt escorted out by this nurse.
--- NOTE | 2024-02-26 09:24 | NUR ---
PATIENT TOLERATED PROCEDURE WELL, DENIES PAIN TO SITE. INSTRUCTIONS REVIEWED ON SITE MANAGEMENT, DRESSING CDI. VITAL SIGNS TAKEN, VSS. DEVICE ADAMA SET UP AND REVIEWED WITH PATIENT. TRANSFER OF CARE TO ANA WALKER.
== END 2024-02-26 09:18 ==
LOC: COL.CAR 07:13
DX: I48.0 Paroxysmal atrial fibrillation (principal); I25.10 Atherosclerotic heart disease of native coronary artery without angina pectoris; Z95.1 Presence of aortocoronary bypass graft
CPT/HCPCS: C1764

== ENCOUNTER → 2024-05-02 | Outpatient (CLI) | payer OTHER ==
[~2024-05-02] MED LIST changes: +Iohexol 300 - 100 ML VIAL IV ONE; +NS 100 ML IV SCH; +PACERONE200 MG PO; +PREDFORTE5ML OP
== END ==
LOC: COL.RAD 12:29
DX: Z01.89 Encounter for other specified special examinations (principal); N30.90 Cystitis, unspecified without hematuria; Z98.890 Other specified postprocedural states
CPT/HCPCS: Q9967